=== PATIENT | female | born 1980 | race Two or more races ===

== ENCOUNTER 2019-11-25 13:09 | Emergency (ER) | payer OTHER ==
[~2019-11-25] VITALS: Ht 162.6 cm; Wt 103.0 kg
--- NOTE | 2019-11-25 13:54 | NUR ---
"I'VE HAD A COUGH SO I GET WINDED. I'VE HAD THE COUGH FOR 4 DAYS. I TESTED POSITIVE ON THE 6TH FOR COVID" BECOMES SOB WALKING 10-15FT
--- NOTE | 2019-11-25 13:55 | NUR ---
CXR AT BEDSIDE PIV PLACED FROM WHICH LABS WERE DRAWN
[2019-11-25] MEDS ORDERED: SODIUM CHLORIDE FLUSH 10ML SYR IVF ONE (14:00)
[2019-11-25] MEDS ORDERED: SODIUM CHLORIDE 0.9% 1,000ML IVBOLUS ONE (14:00)
[2019-11-25] MEDS ORDERED: ACETAMINOPHEN 325 MG TABLET ONE (14:21)
[2019-11-25 14:29] LABS: BASOPHILS # (AUTO) 0.03 x10^3/uL (0-0.1); BASOPHILS % (AUTO) 1 % (0-1); EOSINOPHILS # (AUTO) 0.06 x10^3/uL (0-0.4); EOSINOPHILS % (AUTO) 2 % (1-7); LYMPHOCYTES # (AUTO) 1.48 x10^3/uL (1-3.4); LYMPHOCYTES % (AUTO) 45 % (22-44); MD NO; MEAN CORPUSCULAR HEMOGLOBIN 29.8 pg (27.0-34.8); MEAN CORPUSCULAR HGB CONC 32.8 g/dL (32.4-35.8); MEAN CORPUSCULAR VOLUME 90.8 fL (80-100); MEAN PLATELET VOLUME 9.2 fL (7.4-10.4); MONOCYTES # (AUTO) 0.23 x10^3/uL (0.2-0.8); MONOCYTES % (AUTO) 7 % (2-9); NEUTROPHILS # (AUTO) 1.52 x10^3/uL (1.8-6.8); NEUTROPHILS % (AUTO) 46 % (42-75); PLATELET COUNT 218 x10^3/uL (130-400); RED BLOOD COUNT 5.58 x10^6/uL (3.82-5.3); RED CELL DISTRIBUTION WIDTH 13.6 % (9.6-15.2)
[2019-11-25] MEDS ORDERED: ACETAMINOPHEN 325 MG TABLET PO ONE (14:30)
--- NOTE | 2019-11-25 14:30 | NUR ---
MEDICATED PER EMAR FOR DEHYDRATION/BACK PAIN
[2019-11-25 14:38] LABS: ALBUMIN 3.3 g/dL (3.4-5.0); ANION GAP 7 mmol/L (5-15); CALCIUM 8.8 mg/dL (8.5-10.1); CHLORIDE 111 mmol/L (98-107)
[2019-11-25 14:41] LABS: ALANINE AMINOTRANSFERASE 47 U/L (12-78); ALKALINE PHOSPHATASE 93 U/L (45-117); BILIRUBIN,TOTAL 0.5 mg/dL (0.2-1.0); CREATININE 0.79 mg/dL (0.55-1.02); TOTAL PROTEIN 7.8 g/dL (6.4-8.2); TROPONIN I < 0.015 ng/mL (0.000-0.045)
[2019-11-25] MEDS ORDERED: CEFTRIAXONE PMX 1GM/50ML 50 ML ONE (14:53)
[2019-11-25] MEDS ORDERED: AZITHROMYCIN 500 MG in SODIUM CHLORIDE 0.9% 250 ML IV ONE (15:00)
[2019-11-25] MEDS ORDERED: CEFTRIAXONE PMX 1GM/50ML 50 ML IV ONE (15:00)
--- NOTE | 2019-11-25 15:14 | NUR ---
M,EDICATED PER EMAR VSS ON ROOM AIR PROVIDER TO BEDSIDE TO EXPLAIN POC
[2019-11-25 16:08] VITALS: BP 125/74
== END 2019-11-25 16:15 | disposition home or self-care (01) ==
LOC: ED 13:35
DX: J12.9 Viral pneumonia, unspecified (principal); B34.9 Viral infection, unspecified; R94.31 Abnormal electrocardiogram [ECG] [EKG]
CPT/HCPCS: 36415; 71045; 80053; 84484; 85025; 93005; 96365; 96375; 99285; J0456; J0696; J7030; J7050